=== PATIENT | female | born 1995 | race Caucasian/White ===

== ENCOUNTER 2019-12-11 23:04 | Emergency (ER) | payer SELFPAY ==
--- NOTE | 2019-12-11 23:27 | ER Document Report ---
ED Medical Screen (RME) - General Stated Complaint: DOG BITE Time Seen by Provider: 12/11/19 23:21 Notes: Patient is a 24-year-old female who presents to the emergency department with a chief complaint of dog bite. Patient reports prior to arrival she was bitten by a stray dog in her neighborhood. Patient reports she does not know this dog and is unsure if these shots are up-to-date. She reports this was unprovoked. She reports that she is not sure if her tetanus shot is up-to-date. Patient denies any past medical or surgical problems. Patient denies allergies. Patient reports a laceration to the left upper lip. Physical Exam - HEENT Notes: Patient has an almost 2 cm irregular laceration noted to the left upper lip. This does not go through into the mouth. There is a slow active bleed. Course - Re-evaluation Re-evalutation: 12/11/19 23:27 We will update tetanus shot, give pain medication, and start antibiotic p rophylaxis. I did inform the patient that she will most likely receive rabies immunoglobulin and vaccine. Patient will require lip repair, I have greeted and performed a rapid initial assessment of this patient. A comprehensive ED assessment and evaluation of the patient, analysis of test results and completion of the medical decision making process will be conducted by additional ED providers.
[2019-12-11] MEDS ORDERED: AMOXICILLIN TRIHYD 250 MG CAPSULE PO ONE (23:28)
[2019-12-11] MEDS ORDERED: AMOXICILLIN TR/POT CLAVULANATE 500-125 MG TAB PO ONE (23:28)
[2019-12-11] MEDS ORDERED: ONDANSETRON 4 MG TAB.RAPDIS PO ONE (23:28)
[2019-12-11] MEDS ORDERED: DIPH/PERTUSS(ACELL)/TETANUS VAC/PF 0.5 ML SYR (>=10YO) IM ONE (23:28)
[2019-12-11] MEDS ORDERED: HYDROCODONE/ACETAMINOPHEN 5-325 MG TABLET PO ONE (23:28)
[2019-12-12] MEDS ORDERED: LIDOCAINE 1% INJ-PF (10 MG/ML) 30 ML SDV INJ ONE (05:43)
--- NOTE | 2019-12-12 05:50 | ER Document Report ---
ED Animal Bite - General Chief Complaint: Dog Bite Stated Complaint: DOG BITE Time Seen by Provider: 12/11/19 23:21 Mode of Arrival: Ambulatory Information source: Patient Notes: 24-year-old female presents to ED for complaint of dog bite to the left upper lip. She was treated with Augmentin and tetanus immunization and the triage area. She has decided she does not want rabies i immunoglobulin and vaccine at this time. She states that she would like to wait a couple days to make sure wh ether she can find the dog before getting these shots. She is alert oriented respirations regular and unlabored speaking in full sentences. She states she does not have any past medical or surgical history. TRAVEL OUTSIDE OF THE [place] IN LAST 30 DAYS: No - HPI Location of injury: Face - Left upper lip Severity of injury: Bitten Onset: Just prior to arrival Quality of pain: Sharp Pain Level: 3 Severity: Moderate Context of attack: "Provoked" attack, Approached animal Type of animal: Dog Appearance of animal: Appeared well Animal's immunizations: Unknown Animal captured or known: No Animal control notified: Yes Animal control form completed: Yes - Related Data Allergies/Adverse Reactions: No Known Allergies Allergy (Unverified 12/11/19 23:22) Past Medical History - General Information source: Patient - Social History Smoking Status: Never Smoker Frequency of alcohol use: Occasional Drug Abuse: None Occupation: [employer] Teacher Lives with: Friend Family History: Reviewed & Not Pertinent Patient has suicidal ideation: No Patient has homicidal ideation: No - Past Medical History Cardiac Medical History: Reports: None Pulmonary Medical History: Reports: None EENT Medical History: Reports: None Neurological Medical History: Reports: None Endocrine Medical History: Reports: None Renal/ Medical History: Reports: None Malignancy Medical History: Reports: None GI Medical History: Reports: None Musculoskeletal Medical History: Reports None Skin Medical History: Reports None Psychiatric Medical History: Reports: None Traumatic Medical History: Reports: None Infectious Medical History: Reports: None Past Surgical History: Reports: Hx Oral Surgery - [place] teeth, Hx Tonsillectomy - Immunizations Immunizations up to date: Yes Hx Diphtheria, Pertussis, Tetanus Vaccination: Yes - 12/12/2019 Review of Systems - Review of Systems Constitutional: No symptoms reported EENT: Other - Bite left upper lip Cardiovascular: No symptoms reported Respiratory: No symptoms reported Gastrointestinal: No symptoms reported Genitourinary: No symptoms reported Female Genitourinary: No symptoms reported Musculoskeletal: No symptoms reported Skin: Other - Dog bite left upper lip Hematologic/Lymphatic: No symptoms reported Neurological/Psychological: No symptoms reported -: Yes All other systems reviewed and negative Physical Exam - Vital signs Vitals: Temp Pulse Resp BP Pulse Ox 98.7 F 107 H 20 121/69 93 12/11/19 23:19 12/11/19 23:19 12/11/19 23:19 12/11/19 23:19 12/11/19 23:19 Interpretation: Normal - General General appearance: Appears well, Alert - HEENT Head: Ecchymosis, Open wounds - 2 cm dog bite flap to the left upper lip, Tenderness Eyes: Normal Pupils: PERRL - Respiratory Respiratory status: No respiratory distress Chest status: Nontender Breath sounds: Normal Chest palpation: Normal - Cardiovascular Rhythm: Regular Heart sounds: Normal auscultation Murmur: No - Abdominal Inspection: Normal Distension: No distension Bowel sounds: Normal Tenderness: Nontender Organomegaly: No organomegaly - Back Back: Normal, Nontender - Extremities General upper extremity: Normal inspection, Nontender, Normal color, Normal ROM, Normal temperature General lower extremity: Normal inspection, Nontender, Normal color, Normal ROM, Normal temperature, Normal weight bearing. No: Silvia's sign - Neurological Neuro grossly intact: Yes Cognition: Normal Orientation: AAOx4 [place] Coma Scale Eye Opening: Spontaneous [place] Coma Scale Verbal: Oriented [place] Coma Scale Motor: Obeys Commands [place] Coma Scale Total: 15 Speech: Normal Motor strength normal: LUE, RUE, LLE, RLE Sensory: Normal - Psychological Associated symptoms: Normal affect, Normal mood - Skin Skin Temperature: Warm Skin Moisture: Dry Skin Color: Normal Skin irregularity: Laceration - 2 cm flap Location of irregularity: Other - Left upper lip Irregularity with: Swelling, Tenderness Course - Re-evaluation Re-evalutation: 12/12/19 07:23 Patient was treated with narcotics and Augmentin as well as tetanus in the triage area. Patient refused rabies immunoglobulin and vaccine at this time. She states she is going to try to find the dog and talk to animal control before receiving the shots. Flap laceration was sutured patient was discharged home with prescription for Augmentin and patient was able to verbalize understanding and agreement with treatment plan patient was discharged home. - Vital Signs Vital signs: Temp Pulse Resp BP Pulse Ox 98.3 F 85 18 118/69 99 12/12/19 07:16 12/12/19 07:16 12/12/19 07:16 12/12/19 07:16 12/12/19 07:16 Procedures - Laceration/Wound Repair Left Upper lip Time completed: 06:40 Wound length (cm): 2.2 Wound's Depth, Shape: Flap Laceration pre-procedure: Sterile PPE donned, Sterile drapes applied, Shur-Clens applied Anesthetic type: 1% Lidocaine Volume Anesthetic (mLs): 4 Wound explored: Contaminated Irrigated w/ Saline (mLs): 300 Wound Repaired With: Sutures Suture Size/Type: 5:0, Ethilon Number of Sutures: 6 Layer Closure?: No Post-procedure NV exam normal: No Complications: Yes Adult Head Front/Back picture: 1 - Flap crossing the vermilion border Discharge - Discharge Clinical Impression: Dog bite left upper lip Condition: Stable Disposition: HOME, SELF-CARE Additional Instructions: Animal Bites Animal bites are often heavily contaminated with bacteria. In spite of thorough cleansing and proper treatment, these wounds frequently become inf ected. Bite wounds of the hands are especially prone to complications. Bites are dressed, if possible. Large wounds may require suturing after internal cleansing. Because of infection risk, some large wounds must remain unstitched. Your doctor is trained to advise you on the best treatment for your bite. Call the doctor at once if the wound becomes red, swollen, warm, increasingly painful, or if it begins to drain. Danger signs also include red streaks up the involved extremity, swollen glands in the groin or under the arm, or fever and chills. The risk of rabies from domestic animals is very low. Bats, sick animals, and wild animals may expose you to rabies. The physician, or the health department, will inform you if you will need to receive the rabies vaccine. If you are not able to locate the dog please contact animal control to ensure whether they have located the dog and whether you need to get the rabies immunoglobulin and vaccine. Oral Laceration, Sutured The laceration in your mouth has been sutured because of its severity. Suturing does increase the risk of infection somewhat, as germs in the wound are trapped inside. The wound will appear white and rough tomorrow. This ugly appearance is normal for an oral laceration, and will persist until healing is complete. Do not "play" with the stitches with your tongue or teeth. Prevent swelling by resting for 24 hours. Avoid tart or spicy foods for a couple of days. If any signs of infection occur (swelling, redness of the skin directly over the laceration area, increasing tenderness, tender lumps below the jaw or on the sides of the neck, or fever), see the doctor immediately. SOAP CLEANSING: Gently wash the wound daily using a mild soap (like Ivory, Phisoderm, Neutrogena). Use warm water, rubbing gently until all debris, ooze, and crusting have been washed from the wound. Allow to dry briefly (about 10 minutes) after cleaning. Repeat this cleansing at least three times a day for the first two days and then once or twice a day. ANTIBIOTIC OINTMENT PROTECTION: Your wounds are such that dressing them is not practical or optional. After cleansing, you should apply a thin coating of antibiotic ointment (Bacitracin, not Neosporin) to the wounds at least three times daily. This lessens infection risk, and may decrease the amount of scarring. Use a q-tip or dull butter knife, not your finger, to apply this ointment. Any debris or ooze which builds up in the ointment should be gently rubbed off with a sterile gauze pad. Harder crusting may need to be gently scrubbed off with a clean wash cloth with soap and warm water, perhaps applying a warm, wet wash cloth to the wound for ten minutes first. Development of redness, severe itching, or blistering may mean allergy to the ointment. See the doctor. TETANUS IMMUNIZATION GIVEN: You have been given an immunization against tetanus. Please record this in your records. In general, a booster is needed only once every 10 years. The tetanus shot protects against tetanus or "lockjaw," which is a complication of certain wound infections (the tetanus shot cannot protect against the actual infection). The immunization site may become warm and red due to local reaction. If this occurs, apply warm compresses and take aspirin or ibuprofen to reduce inflammation and discomfort. Return for evaluation if the reaction becomes severe. Augmentin Augmentin is a mixture of amoxicillin and clavulanate. Amoxicillin is a member of the penicillin family. It covers the germs likely to cause ear, bronchial, and urinary infections better than plain penicillin. The addition of clavulanate allows it to cover staph infections of the skin, as well as resistant cases of ear and sinus infections. Your physician has chosen Augmentin for you because of the special nature of your situation. Augmentin is best taken with meals. Nausea after taking the medication is rare, but can occur. Diarrhea can occur, particularly in small children. Vagin al yeast infections, and oral thrush in infants are also common. Contact your physician if these problems occur. Allergy to penicillins is common. If you have had an allergic reaction to any drug of the penicillin family, you should never take any other penicillin. Notify your doctor at once if you develop hives, shortness of breath, swelling, or faintness. FOLLOW-UP CARE: Please return in __2___ days for an infection check and dressing change. Your sutures should be removed in ___5__ days. To facilitate a timely removal of your sutures, you may return to the Emergency Department at [facility]. You do not need to call for an appointment, but the best time to come in for suture removal is early in the morning. If you have been referred to another physician for follow-up care, call that physicians office for an appointment as you were instructed. If you experience a significant change in your laceration, or if you are concerned there may be an infection (swelling, redness, drainage, increasing tenderness, red streaks, tender lumps in the armpit or groin above the laceration, or fever), return to the Emergency Department immediately re-evaluation. Prescriptions: Amox Tr/Potassium Clavulanate [Augmentin 875-125 Tablet] 1 tab PO BID 10 Days tablet Forms: Return to Work
[2019-12-12 07:16] VITALS: BP 118/69
== END 2019-12-12 07:20 | disposition home or self-care (01) ==
LOC: ER 23:04
DX: S01.551A Open bite of lip, initial encounter (principal); W54.0XXA Bitten by dog, initial encounter; Y92.009 Unspecified place in unspecified non-institutional (private) residence as the place of occurrence of the external cause; Z23 Encounter for immunization
CPT/HCPCS: 99283; 90471; 90715; 12011; J3490 ×2; S0119

== ENCOUNTER 2019-12-18 11:20 | Emergency (ER) | payer SELFPAY ==
[2019-12-18 11:33] VITALS: BP 139/91
--- NOTE | 2019-12-18 11:55 | ER Document Report ---
HPI - HPI Patient complains to provider of: suture removal Time Seen by Provider: 12/18/19 11:50 Onset: Other - 12/11/19 Quality of pain: No pain Context: 24-year-old female presents emergency department with request for suture removals to the left side of her lip. She reports on December 11 her and her roommate took their Labrador dog out for a walk and she bent down to pet a random dog and it bit her in the mouth. She denies pain at the site. Denies fever drainage warmth. Associated Symptoms: None Exacerbated by: Denies Relieved by: Denies Similar symptoms previously: No Recently seen / treated by doctor: No Past Medical History - General Information source: Patient - Social History Smoking Status: Unknown if Ever Smoked Family History: Reviewed & Not Pertinent Patient has suicidal ideation: No Patient has homicidal ideation: No - Medical History Medical History: Negative Past Surgical History: Reports: Hx Oral Surgery - [place] teeth, Hx Tonsillectomy - Immunizations Immunizations up to date: Yes Hx Diphtheria, Pertussis, Tetanus Vaccination: Yes - 12/12/2019 Vertical Provider Document - CONSTITUTIONAL Agree With Documented VS: Yes Exam Limitations: No Limitations General Appearance: No Apparent Distress - INFECTION CONTROL TRAVEL OUTSIDE OF THE [place] IN LAST 30 DAYS: No - HEENT HEENT: Atraumatic, Normocephalic - NECK Neck: Supple - RESPIRATORY Respiratory: No Respiratory Distress - CARDIOVASCULAR Cardiovascular: Regular Rate - MUSCULOSKELETAL/EXTREMETIES Musculoskeletal/Extremeties: JOSE VANCE - NEURO Level of Consciousness: Awake, Alert, Appropriate Motor/Sensory: No Motor Deficit - DERM Integumentary: Warm, Dry, Laceration - Laceration to the left side of patient's upper lip with sutures intact site benign. Patient does have a very small area of granulation where sutures were not placed the area was left open for drainage. Course - Re-evaluation Re-evalutation: 12/18/19 12:00 4-year-old female presents emergency department with request for suture removal. On December 11 patient was bit on the lip by a random dog. She reports site benign. Denies pain discharge. Patient does have a small area of granulation to the far left right above her lip. Ken Ly nurse practitioner placed sutures evaluated. She reports that is where sutures were placed with the area was left open for drainage. Patient was instructed to follow-up with plastic surgeon. We discussed Dr. Sterling. She verbalized understanding to plan. - Vital Signs Vital signs: Temp Pulse Resp BP Pulse Ox 98.4 F 81 16 139/91 H 97 12/18/19 11:31 12/18/19 11:31 12/18/19 11:31 12/18/19 11:31 12/18/19 11:31 Discharge - Discharge Clinical Impression: Encounter for removal of sutures Condition: Stable Disposition: HOME, SELF-CARE Instructions: Suture Removal Additional Instructions: *You have been treated for suture removal *Continue to monitor the site for signs of infection such as increasing pain, redness, swelling, warmth *Follow up with a plastic surgeon to discuss scarring *Return to ED for signs of infection, worsening condition, changes, needs Referrals: MANDEEP WHITE MD [ACTIVE STAFF] - Follow up in 3-5 days
== END 2019-12-18 12:08 | disposition home or self-care (01) ==
LOC: ER 11:20
DX: S01.512D Laceration without foreign body of oral cavity, subsequent encounter (principal); X58.XXXD Exposure to other specified factors, subsequent encounter